=== PATIENT | male | born 1980 | race Asian ===

== ENCOUNTER → 2021-11-22 | Outpatient (CLI) | payer OTHER ==
[~2021-11-22] MED LIST: REGADENOSON 0.4 MG/5 ML DISP.SYRIN. IV ONE
--- NOTE | 2021-11-23 14:25 | RAD ---
MR#: [id number] Date of Study: 11/22/2021 Ordering Physician: MARCOS GARCIA Referring Physician: SEBASTIEN ADAMSON Tech: RT Randall Alonso) (N) APPROVED REPORT Test Type: Pharmacological Stress Nurse/Tech: Charito Parker RN Test Indications: Dyspnea on exertion Cardiac History: Hypertension Medications: See Electronic Medical Record Medical History: See Electronic Medical Record Resting ECG: SR Resting Heart Rate: 77 bpm Resting Blood Pressure: 157/105mmHg Pretest Chest Pain: No chest pain Nurse/Tech Notes S1,S2/murmur and lungs clear to auscultation. Consent: The procedure was explained to the patient in lay terms. Informed consent was witnessed. Robby eout was entered into [employer]. History and Stress Test performed by RT Celeste (R) (N) Pharm. Details Pharmacologic stress testing was performed using 0.4mg per 5ml of regadenoson given intravenously ove r 7-10 seconds. Stress Symptoms Dyspnea POST EXERCISE Reason for Termination: Infusion complete Target HR: No Max HR: 91 bpm 60% of Maximum Predicted HR: 150 bpm Max Blood Pressure: 166/101mmHg Blood Pressure response to exercise: Normal blood pressure response during stress. Heart Rate response to exercise: WNL Chest Pain: No. Arrhythmia: No. ST Change: No. INTERPRETATION Stress EKG Conclusion: No evidence of stress induced EKG changes. Imaging Protocol IMAGE PROTOCOL: Rest Tc-99m/stress Tc-99m 1 day Rest: Stress: Viability: Radiopharm.Tc99m UjhoxowvrUp21p Sestamibi Kkrg36qDs 33mCi Duration 13min. 13min. Img Date 11/22/2021 11/22/2021 Inj-Img Byif03tbk. 60min. Rest Admin Site:IV - Right AntecubitalAdministrator:RT Randall Alonso)(N) Stress Admin Site: IV - Right AntecubitalAdministrator: THO Davidson STRESS DATA End Diast. Vol.171.0mlLVEDV index BSA96.0ml End Syst. Vol.55.0mlLVESV index BSA31.0ml Myocardial Qgwt048.0gEject. Zjublquo94.0% Stress Scores Regional WT1.00Summed WT7.00 Regional WM0.00Summed WM0.00 The rest and stress images show normal perfusion, normal contraction and thickening. LV Perf. Quant 17 Seg. SSS0.00 17 Seg. SRS0.00 17 Seg. SDS0.00 Stress Defect Extent (% LAD)0.00Rest Defect Extent (% LAD)0.00Rev. Defect Extent (% LAD)0.00 Stress Defect Extent (% LCX) 16.30Rest Defect Extent (% LCX)0.00Rev. Defect Extent (% LCX)11.30 Stress Defect Extent (% RCA)0.00Rest Defect Extent (% RCA)0.00Rev. Defect Extent (% RCA)0.00 Stress Defect Extent (% CHAI)2.80Rest Defect Extent (% CHAI)0.00Rev. Defect Extent (% CHAI)2.00 Other Information Quality:Average Risk Assessment: Low Risk Conclusion 1. No evidence of EKG changes with stress testing. 2. Normal perfusion at stress/rest. 3. Low risk study. 4. EF > 60%. Signed by : Javy Carlos, Electronically Approved : 11/23/2021 14:24:36
--- NOTE | 2021-11-23 14:34 | CARD ---
MR#: [id number] Date of Study: 11/22/2021 Ordering Physician: MARCOS GARCIA, Referring Physician: MARCOS GARCIA Tech: Stacy Engel [facility] APPROVED REPORT EXAM: Two-dimensional and M-mode echocardiogram with Doppler and color Doppler. Other Information Quality : Technically LimitedHR: 73bpm Rhythm : NSR INDICATION Murmur RISK FACTORS Hypertension Obesity 2D DIMENSIONS RVDd3.6 (2.9-3.5cm)Left Atrium(2D)4.7 (1.6-4.0cm) IVSd1.5 (0.7-1.1cm)Aortic Root(2D)4.1 (2.0-3.7cm) LVDd5.2 (3.9-5.9cm)LVOT Diameter2.0 (1.8-2.4cm) PWd1.4 (0.7-1.1cm)LVDs3.5 (2.5-4.0cm) FS (%) 33.5 %SV81.2 ml LVEF(%)61.9 (>50%) Aortic Valve AoV Peak Hussein.127.9cm/sAoV VTI20.5cm AO Peak GR.6.5mmHgLVOT Peak Hussein.106.1cm/s AO Mean GR.3mmHgAVA (VMAX)2.62cm2 Mitral Valve MV E Afpejnmo079.9cm/sMV DECEL LBYQ378nn MV A Xyqpormj883.0cm/sE/A Ratio1.5 Pulmonary Valve PV Peak Rkephtth302.2cm/s Tricuspid Valve TR P. Rcrivssh542zl/sTR Peak Gr.53mmHg LEFT VENTRICLE The left ventricle is normal size. There is mild concentric left ventricular hypertrophy. The left ve ntricular systolic function is normal and the ejection fraction is within normal range. Estimated eje ction fraction 60%. There is normal LV segmental wall motion. Tissue Doppler imaging reveals mild lef t ventricular diastolic dysfunction. No left ventricle thrombus noted on this study. RIGHT VENTRICLE The right ventricle is normal size. There is normal right ventricular wall thickness. The right ventr icular systolic function is normal. ATRIA The left atrium size is normal. The right atrium size is normal. The interatrial septum is intact wit h no evidence for an atrial septal defect or patent foramen ovale as noted on 2-D or Doppler imaging. AORTIC VALVE The aortic valve is normal in structure and function. Doppler and Color Flow revealed no significant aortic regurgitation. There is no significant aortic valvular stenosis. MITRAL VALVE Moderate mitral valve prolapse with SEVERE mitral regurgitation. There is no mitral valve stenosis. TRICUSPID VALVE The tricuspid valve is normal in structure and function. Doppler and Color Flow revealed trace tricus pid regurgitation. RVSP estimated at 35 mm Hg. There is no tricuspid valve stenosis. PULMONIC VALVE Doppler and Color Flow revealed no pulmonic valvular regurgitation. There is no pulmonic valvular louie nosis. GREAT VESSELS The aortic root is normal in size. The IVC is normal in size and collapses >50% with inspiration. PERICARDIAL EFFUSION There is no evidence of significant pericardial effusion. Critical Notification Critical Value: No <Conclusion> The left ventricular systolic function is normal and the ejection fraction is within normal range. E stimated ejection fraction 60%. There is normal LV segmental wall motion. Doppler and Color Flow revealed trace tricuspid regurgitation. RVSP estimated at 35 mm Hg. Moderate mitral valve prolapse with probable SEVERE mitral regurgitation. Consider ELIAN for further evaluation of mitral valve disease. Signed by : Javy Carlos, Electronically Approved : 11/23/2021 14:34:14
== END ==
LOC: ECHO 08:42
PROVIDERS: ATTEND Internal Medicine Cardiovascular Disease
DX: I34.0 Nonrheumatic mitral (valve) insufficiency (principal); I51.7 Cardiomegaly; I38 Endocarditis, valve unspecified; R06.09 Other forms of dyspnea
CPT/HCPCS: 78452; 93017; 93306; A9500; J2785; C8929